=== PATIENT | male | born 1965 ===

== ENCOUNTER 2021-10-13 11:30 | Inpatient (IN) | payer OTHER ==
[~2021-10-13] VITALS: Ht 154.9 cm; Wt 105.7 kg
[~2021-10-13 11:30] MED LIST: CIPROFLOXACIN750 MG PO; CLONAZEPAM1 MG PO; DOCUSATE SODIU100 MG PO; DOCUSATE SODIUM50 MG PO; HYDROCHLOROTHIA25 MG PO; METHYLPRED4 MG/DOSE- PO; NEURONTIN PO; OMEPRAZOLE20 M1 PO; OXYCODONE HCL20 M1 PO; PERCOCET 5/3251 TAB PO; PNEU16DI2 IJ; PREVASTATIN PO; SETRALINE PO; ZESTRIL40 M1 PO; ZOLPIDEM TARTRA10 MG PO
[2021-10-19] MEDS ORDERED: REFRESH OPTIVE10 ML (10:27)
[2021-10-19] MEDS ORDERED: REFRESH RELIEVA10 ML (10:27)
[2021-10-19] MEDS ORDERED: PRAVASTATIN SOD40 MG PO (10:28)
[2021-10-19] MEDS ORDERED: SERTRALINE HCL100 MG PO (10:28)
[2021-10-19] MEDS ORDERED: MEDROLPACK PO (12:43)
[2021-10-19] MEDS ORDERED: PERCOCET 5-3251 EACH PO (12:43)
[2021-10-19] MEDS ORDERED: AMOX-CLAV 875-1 EACH PO (12:43)
[2021-10-19] MEDS ORDERED: NEURONTIN800 MG PO (12:43)
== END 2021-10-20 15:17 | disposition home or self-care (01) | DRG 455 ==
LOC: ADM 11:30 → PED 10-19 06:40 → O/R 10-19 06:40 → CIR.AMB 10-19 11:30 → SURH 10-19 11:30 → EDSTATUS 10-19 11:30 → SURH 10-19 16:00 → PED 10-19 17:17
PROVIDERS: ADMIT Orthopaedic Surgery Orthopaedic Surgery of the Spine; ATTEND Orthopaedic Surgery Orthopaedic Surgery of the Spine
PROC: 0SG1071 Fusion of 2 or more Lumbar Vertebral Joints with Autologous Tissue Substitute, Posterior Approach, Posterior Column, Open Approach (ICD-10-PCS; 2021-10-19)
PROC: 0QB30ZZ Excision of Left Pelvic Bone, Open Approach (ICD-10-PCS; 2021-10-19)
PROC: 07DR0ZZ Extraction of Iliac Bone Marrow, Open Approach (ICD-10-PCS; 2021-10-19)
PROC: 0SG10A0 Fusion of 2 or more Lumbar Vertebral Joints with Interbody Fusion Device, Anterior Approach, Anterior Column, Open Approach (ICD-10-PCS; principal; 2021-10-19 16:00)
DX: M48.062 Spinal stenosis, lumbar region with neurogenic claudication (principal); M41.86 Other forms of scoliosis, lumbar region; M51.36 Other intervertebral disc degeneration, lumbar region; I10 Essential (primary) hypertension; E11.9 Type 2 diabetes mellitus without complications